=== PATIENT | female | born 1975 | race Caucasian/White ===

== ENCOUNTER 2021-12-17 22:03 | Inpatient (IN) | payer MEDICAID, OTHER ==
[~2021-12-17] VITALS: Ht 157.5 cm; Wt 130.6 kg
[2021-12-17] MEDS ORDERED: ACETAMINOPHEN 325MG TABLET PO STA (23:03)
[2021-12-17] MEDS ORDERED: VANCOMYCIN 1G PREMIX 200 ML IV ONE (23:15)
[2021-12-17] MEDS ORDERED: PIPERACILLIN/TAZ 3.375G PREMIX 50 ML IV ONE (23:15)
[2021-12-17] MEDS ORDERED: SODIUM CHLORIDE 0.9% 1000ML BAG (SEPSIS BOLUS) IV ONE (23:15)
[2021-12-18 00:59] LABS: HEMOGLOBIN. 12.6 g/dL (12.0-16.0); MEAN CORPUSCULAR HEMOGLOBIN 25.4 pg (28.0-32.0); MEAN CORPUSCULAR VOLUME 76.9 fL (81.0-99.0); MEAN PLATELET VOLUME 8.6 fl (7.4-10.4); PLATELET 187 x1000/uL (130-400); RED BLOOD CELL COUNT 4.95 mill/uL (4.2-5.4); RED CELL DISTRIBUTION WIDTH 15.4 % (11.6-14.6)
[2021-12-18 01:07] LABS: CHLORIDE 105 mEq/L (98-107)
[2021-12-18 01:11] LABS: PLATELET ESTIMATE NORMAL
[2021-12-18 01:20] LABS: HCG SCREEN NEGATIVE
[2021-12-18 02:37] LABS: PROTHROMBIN TIME 10.5 sec (9.6-11.0)
[2021-12-18 03:50] LABS: CLARITY URINE CLEAR (CLEAR); COLOR URINE YELLOW (YELLOW); KETONES URINE NEGATIVE (NEGATIVE); LEUKOCYTE ESTERASE URINE NEGATIVE (NEGATIVE); NITRITE URINE NEGATIVE (NEGATIVE); OCCULT BLOOD URINE NEGATIVE (NEGATIVE); PROTEIN URINE NEGATIVE (NEGATIVE); SPECIFIC GRAVITY URINE 1.009 (1.005-1.030); UROBILINOGEN URINE 0.2 E.U./dL (0.2-1.0)
[2021-12-18] MEDS ORDERED: KETOROLAC 15MG/ML VIAL IV PRN (07:30)
[2021-12-18] MEDS ORDERED: ACETAMINOPHEN 325MG TABLET PO PRN ×2 (07:30)
[2021-12-18] MEDS ORDERED: NITROGLYCERIN 0.4MG TABLET SL SL PRN (07:30)
[2021-12-18] MEDS ORDERED: DOCUSATE SODIUM 100MG CAPSULE PO PRN (07:30)
[2021-12-18] MEDS ORDERED: IPRATROPIUM/ALBUTEROL 0.5-3(2.5)MG/3ML NEB NEB PRN (07:30)
[2021-12-18] MEDS ORDERED: MAGNESIUM/ALUMINUM HYDROXIDE/SIMETHICONE 30ML UDC PO PRN (07:30)
[2021-12-18] MEDS ORDERED: CLONIDINE 0.1MG TABLET PO PRN (07:30)
[2021-12-18] MEDS ORDERED: GUAIFENESIN 200MG/10ML SUGAR FREE UDC PO PRN (07:30)
[2021-12-18] MEDS ORDERED: ONDANSETRON HCL 4MG/2ML INJ IV PRN (07:30)
[2021-12-18] MEDS ORDERED: AZITHROMYCIN 500MG/250ML 250 ML IV NR (07:45)
[2021-12-18] MEDS: ENOXAPARIN 40MG/0.4ML SYR SUBCUT SCH (08:00)
[2021-12-18] MEDS ORDERED: CEFTRIAXONE 1 G PREMIX 50 ML IV NR (09:00)
[2021-12-18 10:09] VITALS: BP 120/68
[2021-12-18 10:30] VITALS: BP 120/68
[2021-12-18] MEDS: ASPIRIN 325MG EC TABLET PO SCH (11:00)
[2021-12-18] MEDS: ASCORBIC ACID 500 MG TABLET PO SCH ×2 (11:00→20:49)
[2021-12-18] MEDS: ZINC SULFATE 220 MG ( 50 ) CAPSULE PO SCH (11:00)
[2021-12-18] MEDS: FAMOTIDINE 20MG TABLET PO SCH ×2 (11:00→20:50)
[2021-12-18] MEDS: GUAIFENESIN 600MG ER TABLET PO SCH ×2 (11:04→20:50)
[2021-12-18 11:21] LABS: T4 FREE 0.67 ng/dL (0.76-1.46)
[2021-12-18 11:42] LABS: VITAMIN B12 SERUM 1126 pg/mL (211-911)
[2021-12-18 12:00] VITALS: BP 118/70
[2021-12-18] MEDS: CEFTRIAXONE 1,000 MG in DEXTROSE 5% WATER 50 ML IV SCH (13:06)
[2021-12-18 14:13] LABS: CREATINE KINASE 3101 IU/L (26-192)
[2021-12-18] MEDS: AZITHROMYCIN 500 MG in DEXT 5% WATER 250 ML IV SCH (14:17)
[2021-12-18 16:00] VITALS: BP 114/67
[2021-12-18 20:00] VITALS: BP 103/55
[2021-12-18] MEDS ORDERED: ZOLPIDEM TARTRATE 5MG TABLET PO PRN (21:00)
[2021-12-19] VITALS: BP 110/68
[2021-12-19 00:41] LABS: CREATINE KINASE MB FRACTION 2.3 ng/mL (0.5-3.6)
[2021-12-19 00:52] LABS: CREATINE KINASE 3704 IU/L (26-192)
[2021-12-19 04:00] VITALS: BP 112/67
[2021-12-19 07:41] LABS: BASOPHILS % 0.3 % (0.0-2.0); EOSINOPHILS % 0.4 % (0.0-5.0); HEMATOCRIT. 37.3 % (36.0-48.0); HEMOGLOBIN. 12.2 g/dL (12.0-16.0); LYMPHOCYTES % 31.8 % (20.0-50.0); MEAN CORPUSCULAR HEMOGLOBIN 25.2 pg (28.0-32.0); MEAN CORPUSCULAR VOLUME 77.1 fL (81.0-99.0); MONOCYTES % 12.6 % (2.0-8.0); NEUTROPHILS % 54.9 % (40.0-76.0); PLATELET 187 x1000/uL (130-400); RED BLOOD CELL COUNT 4.84 mill/uL (4.2-5.4); RED CELL DISTRIBUTION WIDTH 15.8 % (11.6-14.6)
[2021-12-19 07:47] LABS: CHLORIDE 112 mEq/L (98-107)
[2021-12-19 07:58] LABS: *BENZODIAZEPINES SCREEN URINE NEGATIVE (NEGATIVE); *COCAINE SCREEN URINE NEGATIVE (NEGATIVE); METHADONE URINE SCREEN NEGATIVE (NEGATIVE); OPIATES URINE SCREEN NEGATIVE (NEGATIVE)
[2021-12-19 07:59] LABS: *AMPHETAMINES SCREEN URINE NEGATIVE (NEGATIVE); *BARBITURATES SCREEN URINE NEGATIVE (NEGATIVE); CANNABINOID URINE SCREEN NEGATIVE (NEGATIVE); PHENCYCLIDINE URINE SCREEN NEGATIVE (NEGATIVE)
[2021-12-19 08:00] VITALS: BP 114/68
[2021-12-19] MEDS ORDERED: AZITHROMYCIN 500 MG in DEXT 5% WATER 250 ML IV SCH (08:00)
[2021-12-19 08:01] LABS: PHOSPHORUS 2.3 mg/dL (2.5-4.9)
[2021-12-19] MEDS ORDERED: CEFTRIAXONE 1,000 MG in DEXTROSE 5% WATER 50 ML IV SCH (09:00)
[2021-12-19] MEDS: ENOXAPARIN 40MG/0.4ML SYR SUBCUT SCH (10:10)
[2021-12-19] MEDS: FAMOTIDINE 20MG TABLET PO SCH ×2 (10:11→20:58)
[2021-12-19] MEDS: ASPIRIN 325MG EC TABLET PO SCH (10:11)
[2021-12-19] MEDS: GUAIFENESIN 600MG ER TABLET PO SCH ×2 (10:11→20:58)
[2021-12-19] MEDS: ZINC SULFATE 220 MG ( 50 ) CAPSULE PO SCH (10:11)
[2021-12-19] MEDS: ASCORBIC ACID 500 MG TABLET PO SCH ×2 (10:11→20:58)
[2021-12-19 12:00] VITALS: BP 117/70
[2021-12-19] MEDS: CEFTRIAXONE 1,000 MG in DEXTROSE 5% WATER 50 ML IV SCH (15:02)
[2021-12-19] MEDS: AZITHROMYCIN 500 MG in DEXT 5% WATER 250 ML IV SCH (15:03)
[2021-12-19 16:00] VITALS: BP 123/72
[2021-12-19 20:00] VITALS: BP 91/49
[2021-12-20] VITALS: BP 100/64
[2021-12-20 04:00] VITALS: BP 102/60
[2021-12-20] MEDS: ENOXAPARIN 40MG/0.4ML SYR SUBCUT SCH (06:34)
[2021-12-20 08:00] VITALS: BP 112/62
[2021-12-20] MEDS: ZINC SULFATE 220 MG ( 50 ) CAPSULE PO SCH (10:14)
[2021-12-20] MEDS: ASPIRIN 325MG EC TABLET PO SCH (10:14)
[2021-12-20] MEDS: GUAIFENESIN 600MG ER TABLET PO SCH (10:15)
[2021-12-20] MEDS: FAMOTIDINE 20MG TABLET PO SCH (10:15)
[2021-12-20] MEDS: ASCORBIC ACID 500 MG TABLET PO SCH (10:15)
[2021-12-20] MEDS ORDERED: AZITHROMYCIN 500 MG TABLET PO SCH (11:00)
[2021-12-20 12:00] VITALS: BP 107/60
[2021-12-20] MEDS: CEFTRIAXONE 1,000 MG in DEXTROSE 5% WATER 50 ML IV SCH (12:09)
[2021-12-20 15:24] VITALS: BP 105/69
[2021-12-20 16:00] VITALS: BP 105/69
[2021-12-20] MEDS ORDERED: ENOXAPARIN 40MG/0.4ML SYR SUBCUT SCH (21:00)
== END 2021-12-20 16:07 | disposition home or self-care (01) | DRG 720 ==
LOC: ER 22:03 → MICUSO 12-18 03:05 → EDBEDREQDT 12-18 03:06 → EDBEDREQTM 12-18 03:06 → EDBEDREQ 12-18 03:06 → 8WST 12-18 09:48
PROVIDERS: ADMIT Internal Medicine; ATTEND Internal Medicine
DX: A41.9 Sepsis, unspecified organism (principal); J18.9 Pneumonia, unspecified organism; E44.1 Mild protein-calorie malnutrition; E83.51 Hypocalcemia; E87.1 Hypo-osmolality and hyponatremia; K76.0 Fatty (change of) liver, not elsewhere classified; Z68.43 Body mass index [BMI] 50.0-59.9, adult; E66.01 Morbid (severe) obesity due to excess calories; Z20.822 Contact with and (suspected) exposure to COVID-19
CPT/HCPCS: 36415; 71045; 74176; 80053; 80061; 80305; 81003; 82550; 82553; 82607; 83036; 83605; 83735; 84100; 84145; 84439; 84443; 84484; 84703; 85025; 86140; 87076; 87426; 93970; 99291; C1893; J0456; J0696; J1650; J2543; J3370; J7030; J7060